=== PATIENT | female | born 1955 | race Two or more races ===

== ENCOUNTER 2022-06-17 13:29 | Outpatient (CLI) | payer OTHER | END 2022-06-17 13:41 | disposition home or self-care (01) | LOC: SONOGRAMA 13:29 | PROVIDERS: ATTEND Specialist | DX: N63.11 Unspecified lump in the right breast, upper outer quadrant (principal); N83.209 Unspecified ovarian cyst, unspecified side ==

== ENCOUNTER 2023-06-24 09:34 | Outpatient (CLI) | payer OTHER | END 2023-06-24 09:36 | disposition home or self-care (01) | LOC: SONOGRAMA 09:34 | PROVIDERS: ATTEND Specialist | DX: N83.209 Unspecified ovarian cyst, unspecified side (principal) ==